=== PATIENT | male | born 1970 | race Caucasian/White ===

== ENCOUNTER 2020-10-17 14:14 | Emergency (ER) | payer OTHER ==
[~2020-10-17 14:14] MED LIST: ELIQUIS5 MG PO; LOVENOX80 MG/0.8 SC
[2020-10-17] MEDS ORDERED: ZPAK PO (14:55)
== END 2020-10-17 15:10 | disposition home or self-care (01) ==
LOC: FER 14:14
DX: U07.1 COVID-19 (principal); F17.210 Nicotine dependence, cigarettes, uncomplicated; Z86.711 Personal history of pulmonary embolism; Z79.01 Long term (current) use of anticoagulants; Z88.0 Allergy status to penicillin
CPT/HCPCS: 71045; U0002